=== PATIENT | male | born 2000 | race Two or more races ===

== ENCOUNTER 2024-01-21 18:48 | Emergency (ER) | payer SELFPAY ==
[2024-01-21 18:57] VITALS: BP 125/74; PULSE 103; RESP 18; TEMP 97.5; BMI 34.0
[2024-01-21] MEDS ORDERED: ALBUTEROL SO4 2.5/IPRATROPIUM 0.5 INH SOL 3 ML VIAL.NEB. NEB ONE ×3 (19:05→20:05)
[2024-01-21] MEDS: ALBUTEROL SO4 2.5/IPRATROPIUM 0.5 INH SOL 3 ML VIAL.NEB. NEB ONE ×2 (19:09→20:11)
[2024-01-21] MEDS ORDERED: DEXAMETHASONE SOD PHOSPHATE 10 MG/1 ML VIAL ONE (19:21)
[2024-01-21] MEDS: DEXAMETHASONE SOD PHOSPHATE 10 MG/1 ML VIAL IM ONE (19:26)
== END 2024-01-21 21:05 | disposition home or self-care (01) ==
LOC: JERFT 18:48
PROC: 3E023GC Introduction of Other Therapeutic Substance into Muscle, Percutaneous Approach (ICD-10-PCS; principal; 2024-01-21)
PROC: 3E0F7GC Introduction of Other Therapeutic Substance into Respiratory Tract, Via Natural or Artificial Opening (ICD-10-PCS; 2024-01-21)
PROC: 3E0F7GC Introduction of Other Therapeutic Substance into Respiratory Tract, Via Natural or Artificial Opening (ICD-10-PCS; 2024-01-21)
DX: J45.901 Unspecified asthma with (acute) exacerbation (principal); R05.9 Cough, unspecified; R09.81 Nasal congestion; R00.0 Tachycardia, unspecified
CPT/HCPCS: 71046-TC-FY; 99284-25; J1100